=== PATIENT | female | born 1970 | race Caucasian/White ===

== ENCOUNTER → 2018-12-30 | Outpatient (CLI) | payer SELFPAY ==
--- NOTE | 2018-12-30 17:52 | Diagnostic Imaging Report ---
INDICATION: Increasing hand pain bilaterally, greatest on the left. TIME OF EXAM: 03:45 p.m. FINDINGS: Right hand does show severe erosive degenerative changes at the first carpometacarpal joint. Remainder of the carpus is unremarkable. The MCP joints are unremarkable. Mild interphalangeal joint degenerative changes are seen. No definite osseous erosions are identified. There does appear to be soft tissue swelling along the dorsum of the left hand at the level of the MCP joints. Left hand also demonstrate severe erosive degenerative changes at the first CMC joint. MCP joints are intact. There appear to be erosive changes at the PIP joint of the fifth finger. There is marked soft tissue swelling about the MCP joints. IMPRESSION: Soft tissue swelling bilateral hands with erosive changes of the first CMC joints bilaterally as well as the PIP joint of the left fifth finger. No fractures are seen. Dictated by: Dictated on workstation # [id number]
== END ==
LOC: RAD FS 15:29
PROVIDERS: ATTEND Family Medicine
DX: M85.842 Other specified disorders of bone density and structure, left hand (principal); M85.841 Other specified disorders of bone density and structure, right hand; M79.89 Other specified soft tissue disorders